=== PATIENT | male | born 1975 | race Caucasian/White ===

== ENCOUNTER 2019-04-02 17:46 | Emergency (ER) | payer SELFPAY ==
[~2019-04-02] VITALS: Ht 167.6 cm; Wt 95.3 kg
[2019-04-02 17:50] VITALS: BP_SYST 145
--- NOTE | 2019-04-02 17:50 | NUR ---
Patient triaged and placed in waiting room. VSS and patient appears in no acute distress at this time. Accompanied by FRIEND, awaiting available bed, and MD notified of need for MSE.
[2019-04-02 19:20] LABS: BASOPHILS % (AUTO) 0.4 % (0.0-2.0); EOSINOPHILS % (AUTO) 0.3 % (0.0-4.0); HEMATOCRIT 53.5 % (36-54); HEMOGLOBIN 18.3 g/dL (14.0-18.0); LYMPHOCYTES # (AUTO) 1.2 K/uL (1.0-5.5); LYMPHOCYTES % (AUTO) 17.9 % (20.5-51.5); MEAN CORPUSCULAR HEMOGLOBIN 31 pg (27-31); MEAN CORPUSCULAR HGB CONC 34 % (32-36); MEAN CORPUSCULAR VOLUME 90 fL (79.0-98.0); MONOCYTES # (AUTO) 0.9 K/uL (0.0-1.0); MONOCYTES % (AUTO) 13.2 % (1.7-9.3); NEUTROPHILS # (AUTO) 4.5 K/uL (1.8-7.7); NEUTROPHILS % (AUTO) 68.2 % (40.0-70.0); PLATELET COUNT (AUTO) 171 K/uL (130-430); RED BLOOD CELL COUNT(AUTO) 5.97 MIL/uL (4.2-6.2); RED CELL DISTRIBUTION WIDTH 14.3 % (9.0-15.0); WHITE BLOOD COUNT (AUTO) 6.6 K/uL (4.8-10.8)
[2019-04-02 19:58] LABS: CALCIUM 7.9 mg/dL (8.4-11.0); CREATININE 1.09 mg/dL (0.55-1.30); POTASSIUM 3.7 mmol/L (3.5-5.1)
--- NOTE | 2019-04-02 22:11 | NUR ---
Patient to ER bed 4 to gown for evaluation. Side rails up. Report given to NATACHA ARENAS.
--- NOTE | 2019-04-02 22:15 | NUR ---
44 y/o male presenting to ED w/ flu like symptoms that started earlier this day. No other significatn Hx noted. Will continue to monitor.
--- NOTE | 2019-04-02 22:18 | NUR ---
Dr. Ray at bedside examining Pt.
[2019-04-02] MEDS ORDERED: ACETAMINOPHEN 500 MG TABLET PO ONE (22:45)
[2019-04-02] MEDS ORDERED: AZITHROMYCIN 250 MG TABLET PO ONE (22:45)
[2019-04-02] MEDS ORDERED: NACL 0.9% 1,000 ML IV ONE (23:15)
[2019-04-02 23:38] VITALS: BP_SYST 132
--- NOTE | 2019-04-02 23:38 | NUR ---
Patient given written and verbal discharge instructions and verbalizes understanding. ER MD discussed with patient the results and treatment provided. Patient in stable condition. ID arm band removed. IV catheter removed intact and dressing applied, no active bleeding. Rx of Tamiflu and Zithromax given. Patient educated on pain management and to follow up with PMD. Pain Scale 0/10. Opportunity for questions provided and answered. Medication side effect fact sheet provided.
== END 2019-04-02 23:38 | disposition home or self-care (01) ==
LOC: SED 17:46
DX: J40 Bronchitis, not specified as acute or chronic (principal); J11.1 Influenza due to unidentified influenza virus with other respiratory manifestations; Z88.0 Allergy status to penicillin
CPT/HCPCS: 36415; 71046; 80048; 85025; 87040; 99284; J7030; Q0144